=== PATIENT | male | born 1965 ===

== ENCOUNTER 2023-11-29 09:50 | Inpatient (IN) | payer OTHER ==
[~2023-11-29] VITALS: Ht 268 cm; Wt 76.7 kg
[2023-11-29] MEDS ORDERED: METFORMIN HCL500 M3 PO (10:45)
[2023-11-29] MEDS ORDERED: COZAAR100 MG PO (10:45)
[2023-11-29] MEDS ORDERED: ATORVASTATIN CA10 MG PO (10:45)
[2023-11-29] MEDS ORDERED: CATAFLAN (10:47)
[2023-11-29 11:30] LABS: ALBUMIN 3.7 gm/dL (3.4-5.0); BILIRUBIN TOTAL 0.67 mg/dL (0.3-1.2); CREATININE SERUM 1.31 mg/dL (0.70-1.30); GFR 56.2; POTASSIUM 5.87 mEq/L (3.5-5.1); TOTAL PROTEIN 7.7 gm/dL (6.4-8.2)
[2023-12-06] MEDS ORDERED: CEFAZOLIN SODIUM 2,000 MG in 0.9 % SODIUM CHLORIDE 100 ML IV ONE (12:15)
[2023-12-06] MEDS ORDERED: TRANEXAMIC ACID 1,000 MG in 0.9 % SODIUM CHLORIDE 100 ML IV ONE (12:15)
[2023-12-06] MEDS ORDERED: VANCOMYCIN HCL 1,000 MG in 0.9 % SODIUM CHLORIDE 250 ML IR ONE (12:15)
[2023-12-06] MEDS ORDERED: MORPHINE SULFATE 4 MG/ML CARTRIDGE IV PRN (13:30)
[2023-12-06] MEDS ORDERED: ONDANSETRON HCL 2 MG/ML VIAL IV PRN (13:30)
[2023-12-06] MEDS ORDERED: SODIUM CHLORIDE 0.45 % 1,000 ML IV SCH (13:30)
[2023-12-06] MEDS ORDERED: OxyCODONE HCL 5 MG TABLET (ROXICODONE) PO PRN (13:30)
[2023-12-06] MEDS ORDERED: DEXTROSE 50 % IN WATER 0.5 G/ML DISP.SYRIN IV PRN (15:00)
[2023-12-06] MEDS ORDERED: INSULIN LISPRO 1,000 UNIT/10 ML UNITS SUBCUTANEO PRN (15:00)
[2023-12-06] MEDS ORDERED: hydrALAZINE HCL 20 MG VIAL IV PRN (15:00)
[2023-12-06] MEDS ORDERED: CEFAZOLIN SODIUM 1,000 MG VIAL IV SCH (17:00)
[2023-12-06] MEDS ORDERED: GABAPENTIN 300 MG CAPSULE PO SCH (17:00)
[2023-12-06] MEDS ORDERED: ACETAMINOPHEN 500 MG GEL..CAP PO SCH (18:00)
[2023-12-07 06:57] LABS: HEMATOCRIT 26.4 % (39.0-48.0); HEMOGLOBIN 9.1 g/dL (13-16.00); MEAN CELL VOLUME 91.1 fL (80.0-100.00); MEAN CORPUSCULAR HEMOGLOBIN 31.3 pg (27.00-32.0); MEAN CORPUSCULAR HGB CONC 34.4 g/dl (32.0-36.0); PLATELET COUNT 210 K/uL (150-450); RED CELL DISTRIBUTION WIDTH 12.8 % (11.5-14.5)
[2023-12-07] MEDS ORDERED: ELIQUIS2.5 MG PO (08:21)
[2023-12-07] MEDS ORDERED: CEFADROXIL500 MG PO (08:21)
[2023-12-07] MEDS ORDERED: PERCOCET 5-3251 EACH PO (08:21)
[2023-12-07] MEDS ORDERED: APIXABAN 2.5 MG TABLET PO SCH (09:00)
[2023-12-07] MEDS ORDERED: LOSARTAN POTASSIUM 50 MG TABLET PO SCH (09:00)
[2023-12-07] MEDS ORDERED: SENNOSIDES 1 TAB TABLET PO SCH (09:00)
[2023-12-07] MEDS ORDERED: FUROsemide 20 MG/2 ML VIAL IV SCH (13:15)
[2023-12-07] MEDS ORDERED: VITAMIN B COMPLEX 1 EACH PO SCH (17:00)
[2023-12-07] MEDS ORDERED: Cyanocobalamin/Mecobalamin 1 TAB.SL SL SCH (17:00)
[2023-12-07] MEDS ORDERED: SOD FERRIC GLUC COMPLX/SUCROSE 62.5 MG/5 ML AMPUL IV SCH (17:00)
[2023-12-08] MEDS ORDERED: IRON FUM,PS/FOLIC ACID/VITC/B3 1 CAP CAPSULE PO SCH (09:00)
[2023-12-08] MEDS ORDERED: MAGNESIUM HYDROXIDE 30 ML BLIST.PACK PO NR (15:01)
[2023-12-08] MEDS ORDERED: LACTULOSE 20 G/30 ML BLIST.PACK PO NR (15:15)
[2023-12-08] MEDS ORDERED: MINERAL OIL 30 ML BLIST.PACK PO NR (15:15)
[2023-12-09 02:18] LABS: HEMATOCRIT 30.8 % (39.0-48.0); MEAN CELL VOLUME 85.5 fL (80.0-100.00); MEAN CORPUSCULAR HGB CONC 34.2 g/dl (32.0-36.0); PLATELET COUNT 185 K/uL (150-450)
[2023-12-09 02:20] LABS: RED CELL DISTRIBUTION WIDTH 16.7 % (11.5-14.5)
[2023-12-09 02:21] LABS: HEMOGLOBIN 10.5 g/dL (13-16.00); MEAN CORPUSCULAR HEMOGLOBIN 29.1 pg (27.00-32.0)
== END 2023-12-09 11:15 | DRG 470 ==
LOC: O/R 12-06 06:39 → SURH 12-06 11:15 → SURG 12-06 14:09 → SURH 12-06 14:15 → SURG 12-09 11:15
PROVIDERS: ADMIT Orthopaedic Surgery; ATTEND Orthopaedic Surgery
PROC: 0MBM0ZZ Excision of Left Hip Bursa and Ligament, Open Approach (ICD-10-PCS; 2023-12-06)
PROC: 0QU70JZ Supplement Left Upper Femur with Synthetic Substitute, Open Approach (ICD-10-PCS; 2023-12-06)
PROC: 0SRB0JZ Replacement of Left Hip Joint with Synthetic Substitute, Open Approach (ICD-10-PCS; principal; 2023-12-06 14:15)
PROC: 30233N1 Transfusion of Nonautologous Red Blood Cells into Peripheral Vein, Percutaneous Approach (ICD-10-PCS; 2023-12-07)
DX: M16.12 Unilateral primary osteoarthritis, left hip (principal); D62 Acute posthemorrhagic anemia; I10 Essential (primary) hypertension; E11.9 Type 2 diabetes mellitus without complications; Z79.4 Long term (current) use of insulin